=== PATIENT | male | born 1980 | race African-American/Black ===

== ENCOUNTER 2019-09-06 16:55 | Emergency (ER) | payer OTHER, MEDICAID ==
[~2019-09-06] VITALS: Ht 188 cm; Wt 83.9 kg
[2019-09-06] MEDS ORDERED: SODIUM CHLORIDE 0.9% 500 ML IV ONE (17:17)
[2019-09-06] MEDS ORDERED: ONDANSETRON HCL 4 MG/2 ML VIAL IV ONE (17:30)
[2019-09-06] MEDS ORDERED: HYDROmorphone HCL 2 MG/ML VL IV ONE (17:30)
[2019-09-06] MEDS ORDERED: ETOMIDATE (2MG/ML) 20ML VIAL IV ONE ×2 (18:04→18:15)
[2019-09-06 18:57] VITALS: BP 117/64
== END 2019-09-06 19:50 | disposition home or self-care (01) ==
LOC: ER 16:55
DX: S43.005A Unspecified dislocation of left shoulder joint, initial encounter (principal); M25.561 Pain in right knee; M25.552 Pain in left hip; V29.9XXA Motorcycle rider (driver) (passenger) injured in unspecified traffic accident, initial encounter; Y93.55 Activity, bike riding; Y92.89 Other specified places as the place of occurrence of the external cause; Y99.8 Other external cause status
CPT/HCPCS: 23650; 73030; 73560; 96374; 96375; 99152; 99285; J1170; J2405

== ENCOUNTER 2019-09-07 10:11 | Emergency (ER) | payer MEDICAID ==
[~2019-09-07] VITALS: Ht 188 cm; Wt 83.9 kg
[2019-09-07 10:23] VITALS: BP 122/71
[2019-09-07] MEDS ORDERED: KETOROLAC TROMETH 60MG/2ML VIAL IM ONE (11:00)
[2019-09-07] MEDS ORDERED: LIDOCAINE 1% HCL (LOCAL ANESTH.) INJ 20ML MDV IJ ONE (11:00)
== END 2019-09-07 11:35 | disposition home or self-care (01) ==
LOC: ER 10:11
DX: S31.010A Laceration without foreign body of lower back and pelvis without penetration into retroperitoneum, initial encounter (principal); S83.91XA Sprain of unspecified site of right knee, initial encounter; S51.032A Puncture wound without foreign body of left elbow, initial encounter; V18.4XXA Pedal cycle driver injured in noncollision transport accident in traffic accident, initial encounter; Y93.55 Activity, bike riding; Y92.89 Other specified places as the place of occurrence of the external cause; Y99.8 Other external cause status
CPT/HCPCS: 12002; 73562; 96372; 99283; J1885; J2001